=== PATIENT | female | born 1950 | race Caucasian/White ===

== ENCOUNTER 2017-05-17 19:25 | Emergency (ER) | payer MEDICARE ==
[~2017-05-17] VITALS: Ht 167.6 cm; Wt 73.5 kg
[~2017-05-17 19:25] MED LIST: ALBU6.7H INH; ASPI325T PO; CEFU1TAB20 PO; FISH1CAP2; LEVO112T2 PO; LOPI600T PO; NIAC500T5 PO; NITR0.4S SL; OMEP20TA PO; PRAV40TA2 PO; QUIN40TA10 PO; RANI150 PO
[2017-05-17 19:32] VITALS: BP 109/59; PULSE 92; RESP 18; TEMP 97.9; O2SAT 95
--- NOTE | 2017-05-17 19:59 | PD ---
HPI Chief Complaint: Respiratory Symptoms Time Seen by Provider: 19:43 Travel History International Travel<30 days: No Contact w/Intl Traveler<30days: No Traveled to known affect area: No History of Present Illness HPI The patient was seen and examined in the presence of the nurse. This patient has been coughing for one month. She has a lifelong smoker. She has seen her primary physician multiple times recently. She's been on 3 different courses of antibiotics without any change. She had a chest x-ray recently. She denies fever or chest pain. Symptoms severity is mild. No alleviating factors PFSH Past Medical History Arthritis: Yes Asthma: Yes Heart Rhythm Problems: No Cancer: No Cardiovascular Problems: Yes High Cholesterol: Yes Chest Pain: Yes (AT TIMES TAKES NITRO) Congestive Heart Failure: No COPD: Yes Cerebrovascular Accident: Yes Diabetes: No Endocrine: Yes GERD: Yes Genitourinary: No Hiatal Hernia: No Hypertension: Yes Immune Disorder: No Musculoskeletal: Yes Neurologic: Yes Psychiatric: No Reproductive: No Respiratory: Yes (COPD) Migraines: Yes Myocardial Infarction: Yes Seizures: No Sleep Apnea: No Thyroid Disease: Yes Ulcer: No ?: Not Past Surgical History Abdominal Surgery: Yes (GALLBLADDER) AICD: No Arteriovenous Shunt: No Cardiac Surgery: No Cholecystectomy: Yes Ear Surgery: No Endocrine Surgery: No (,TUMER ON PARATHYROID, REMOVED TUMER) Eye Surgery: No Genitourinary Surgery: No Gynecologic Surgery: No (TUBAL) Insulin Pump: No Joint Replacement: No Oral Surgery: No Pacemaker: No Thoracic Surgery: No Other Surgery: Yes (PARATHYROID TUMOR REMOVAL) Social History Alcohol Use: No Tobacco Use: Yes (1/2 PPD) Substance Use: No Allergies-Medications (Allergen,Severity, Reaction): Coded Allergies: Sulfa (Sulfonamide Antibiotics) (Unverified Allergy, Unknown, 05/17/17) codeine (Unverified Adverse Reaction, Intermediate, VOMITING, 05/17/17) ibuprofen (Unverified Adverse Reaction, Intermediate, VOMITING, 05/17/17) Reported Meds & Prescriptions Reported Meds & Active Scripts Active Cefuroxime Axetil 500 Mg Tab 500 Mg PO BID 5 Days Reported Aspirin 325 Mg Tab (Aspirin) 325 Mg Tab 325 Mg PO DAILY Proventil Hfa (Albuterol Sulfate) 6.7 Gm Aero 2 Puff INH Q4H PRN * SHAKE WELL BEFORE USE * Nitrostat (Nitroglycerin) 0.4 Mg Sub 0.4 Mg SL DIRECTED PRN Omeprazole 20 Mg Tab 40 Mg PO DAILY Levothyroxine 112 mcg (Levothyroxine Sodium) 112 Mcg Tab 1 Tab PO DAILY Zantac 150 Mg Tab (Ranitidine HCl) 150 Mg Tab 150 Mg PO BID Quinapril Hcl (Quinapril HCl) 40 Mg Tab 40 Mg PO DAILY Pravastatin Sodium 40 Mg Tab 1 Tab PO BID Lopid (Gemfibrozil) 600 Mg Tab 600 Mg PO BIDAC Fish Oil +D3 2572-2837 mg-Unit (Fish Oil-Cholecalciferol) 1 Cap Cap Niacin 500 Mg Tab 1,000 Mg PO BID Review of Systems HENT: No: Headaches Cardiovascular: No: Chest Pain or Discomfort Respiratory: Positive: Cough Gastrointestinal: No: Vomiting Physical Exam Narrative RESPIRATORY: Respiratory effort unlabored, no retractions or use of accessory muscles. Breath sounds are clear and symmetric. CARDIOVASCULAR: Regular rate and rhythm without murmur. Extremities showed no edema or varicosities. GASTROINTESTINAL: Abdomen soft, non-tender, nondistended. Positive bowel sounds. No hepato-splenomegaly, or palpable masses. No guarding. Data Data Last Documented VS Vital Signs Date Time Temp Pulse Resp B/P (MAP) Pulse Ox O2 Delivery O2 Flow Rate FiO2 05/17/17 19:53 Room Air 05/17/17 19:32 97.9 92 18 109/59 (76) 95 MDM Medical Decision Making Medical Screen Exam Complete: Yes Emergency Medical Condition: Yes Medical Record Reviewed: Yes Differential Diagnosis Bronchitis, asthma, GERD Narrative Course I have reviewed the patient's electronic medical record. Patient looks clinically well. Lungs are clear and she is looking minimally symptomatic I don't feel fourth course of antibiotics would change things I offered her another chest x-ray but she recently had one and declines I don't think it's important to do another chest x-ray. She should discuss chest CT with her physician given her long smoking history to evaluate for possible nodule or tumor She needs to quit smoking Diagnosis Primary Impression: Chronic cough Additional Impression: Smoker Additional Instructions: The patient was advised to follow up with their physician and return if they worsen. Quit smoking Med/Other Pt SpecificInfo: Other Disposition: 01 DISCHARGE HOME Condition: Stable Tony Julio MD May 17, 2017 19:59
[2017-05-17] MEDS ORDERED: MAGN250T11 PO (20:00)
[2017-05-17] MEDS ORDERED: OMEG1CAP88 (20:00)
[2017-05-17] MEDS ORDERED: ROSU1TAB6 PO (20:00)
[2017-05-17] MEDS ORDERED: FAMO1TAB37 PO (20:00)
[2017-05-17] MEDS ORDERED: ACCU40TA PO (20:00)
[2017-05-17] MEDS ORDERED: LEVO112T2 PO (20:00)
[2017-05-17] MEDS ORDERED: ALBUAER3 INH (20:00)
[2017-05-17] MEDS ORDERED: NITR0.4S SL (20:00)
[2017-05-17] MEDS ORDERED: SPIRCAP INH (20:00)
[2017-05-17] MEDS ORDERED: RANI150T PO (20:00)
[2017-05-17] MEDS ORDERED: CALC1TAB87 PO (20:00)
[2017-05-17] MEDS ORDERED: OMEP40CA2 PO (20:00)
[2017-05-17] MEDS ORDERED: NIAC500T5 PO (20:00)
[2017-05-17] MEDS ORDERED: ADVA250A INH (20:00)
[2017-05-17] MEDS ORDERED: FENO54TA PO (20:00)
== END 2017-05-17 20:24 | disposition home or self-care (01) ==
LOC: PHED 19:25
DX: R05 Cough (principal); F17.210 Nicotine dependence, cigarettes, uncomplicated; J44.9 Chronic obstructive pulmonary disease, unspecified
CPT/HCPCS: 99282